=== PATIENT | male | born 1985 | race Two or more races ===

== ENCOUNTER 2020-10-20 09:10 | Emergency (ER) | payer SELFPAY ==
[~2020-10-20] VITALS: Ht 165.1 cm; Wt 178.0 kg
[2020-10-20 09:59] LABS: BASO # 0.1 x10^3/uL (0.0-0.2); BASO % 0 % (0-3); EOS # 0.1 x10^3/uL (0.0-0.7); EOS % 0 % (0-3); HEMATOCRIT 45.3 % (39.0-53.0); HEMOGLOBIN 15.6 g/dL (13.0-17.5); LYMPH # 1.4 x10^3/uL (1.0-4.8); LYMPH % 9 % (24-48); MEAN CORPUSCULAR HEMOGLOBIN 31 pg (25-35); MEAN CORPUSCULAR HGB CONC 34 g/dL (31-37); MEAN CORPUSCULAR VOLUME 91 fL (79-100); MONO % 12 % (0-9); NEUT # 12.9 x10^3/uL (1.8-7.7); NEUT % 79 % (31-73); PLATELET COUNT 313 x10^3/uL (140-400); RED BLOOD COUNT 5.01 x10^6/uL (4.30-5.70); RED CELL DISTRIBUTION WIDTH 14.6 % (11.5-14.5); WHITE BLOOD COUNT 16.5 x10^3/uL (4.0-11.0)
[2020-10-20] MEDS ORDERED: IV NORMAL SALINE 1000ML BAG 1,000 ML IV ONE (10:00)
[2020-10-20 10:08] LABS: CALCIUM 9.9 mg/dL (8.5-10.1); POTASSIUM 3.5 mmol/L (3.5-5.1)
--- NOTE | 2020-10-20 10:11 | PHYS DOC ---
Past Medical History Past Medical History: No Pertinent History Past Surgical History: No Surgical History Smoking Status: Never Smoker Alcohol Use: Occasionally General Adult EDM: Chief Complaint: SORE THROAT HPI: HPI: Patient is a 35 year old male who presented to ER for evaluation of sore throat, fever and chill, body ache since 5 days ago. Patient is complaining of pain whenever he swallows. Patient denies any headache, no neck stiffness. Patient denies being exposed to anybody who tested positive for COVID-19. Patient denies abdominal pain, no nausea vomiting. Patient denies any trouble breathing. Patient said he can open and close his mouth without any problem. Review of Systems: Review of Systems: Constitutional: Positive for fever or chills. [] Eyes: Denies change in visual acuity. [] HENT: Positive for nasal congestion or sore throat. [] Respiratory: Denies cough or shortness of breath. [] Cardiovascular: Denies chest pain or edema. [] GI: Denies abdominal pain, nausea, vomiting, bloody stools or diarrhea. [] : Denies dysuria. [] Musculoskeletal: Denies back pain or joint pain. [] Integument: Denies rash. [] Neurologic: Denies headache, focal weakness or sensory changes. [] Endocrine: Denies polyuria or polydipsia. [] Lymphatic: Denies swollen glands. [] Psychiatric: Denies depression or anxiety. [] Heart Score: Risk Factors: Risk Factors: DM, Current or recent (<one month) smoker, HTN, HLP, family history of CAD, obesity. Risk Scores: Score 0 - 3: 2.5% MACE over next 6 weeks - Discharge Home Score 4 - 6: 20.3% MACE over next 6 weeks - Admit for Clinical Observation Score 7 - 10: 72.7% MACE over next 6 weeks - Early Invasive Strategies Current Medications: Current Medications Medications (Trade) Dose Ordered Sig/Tamar Start Time Stop Time Status Last Admin Dose Admin Acetaminophen (Tylenol) 1,000 mg 1X ONCE 10/20/20 10:15 10/20/20 10:16 Ampicillin Sodium/ Sulbactam Sodium 3 gm/Sodium Chloride 100 ml @ 200 mls/hr 1X ONCE 10/20/20 10:15 10/20/20 10:44 Methylprednisolone Sodium Succinate (SOLU-Medrol 125MG VIAL) 125 mg 1X ONCE 10/20/20 10:15 10/20/20 10:16 Sodium Chloride 1,000 ml @ 1,000 mls/hr 1X ONCE 10/20/20 10:00 10/20/20 10:59 Allergies: Allergies: Allergies Coded Allergies Type Severity Reaction Last Updated Verified naproxen Allergy Intermediate SWELLING 10/20/20 Yes Physical Exam: PE: Constitutional: Well developed, well nourished, no acute distress, non-toxic appearance. [] HENT: Normocephalic, atraumatic, bilateral external ears normal, oropharynx moist with erythema and tonsillary hypertrophy, no oral exudates, nose normal. Bilateral anterior cervical lymph nodes swollen and tender. Uvula is midline. No trismus. Eyes: PERRLA, EOMI, conjunctiva normal, no discharge. [] Neck: Normal range of motion, no tenderness, supple, no stridor. [] Cardiovascular:Heart rate regular rhythm, no murmur [] Lungs & Thorax: Bilateral breath sounds clear to auscultation [] Abdomen: Bowel sounds normal, soft, no tenderness, no masses, no pulsatile masses. [] Skin: Warm, dry, no erythema, no rash. [] Back: No tenderness, no CVA tenderness. [] Extremities: No tenderness, no cyanosis, no clubbing, ROM intact, no edema. [] Neurologic: Alert and oriented X 3, normal motor function, normal sensory function, no focal deficits noted. [] Psychologic: Affect normal, judgement normal, mood normal. [] Current Patient Data: Labs: Laboratory Tests Test 10/20/20 09:45 White Blood Count 16.5 x10^3/uL (4.0-11.0) H Red Blood Count 5.01 x10^6/uL (4.30-5.70) Hemoglobin 15.6 g/dL (13.0-17.5) Hematocrit 45.3 % (39.0-53.0) Mean Corpuscular Volume 91 fL (79-100) Mean Corpuscular Hemoglobin 31 pg (25-35) Mean Corpuscular Hemoglobin Concent 34 g/dL (31-37) Red Cell Distribution Width 14.6 % (11.5-14.5) H Platelet Count 313 x10^3/uL (140-400) Neutrophils (%) (Auto) 79 % (31-73) H Lymphocytes (%) (Auto) 9 % (24-48) L Monocytes (%) (Auto) 12 % (0-9) H Eosinophils (%) (Auto) 0 % (0-3) Basophils (%) (Auto) 0 % (0-3) Neutrophils # (Auto) 12.9 x10^3/uL (1.8-7.7) H Lymphocytes # (Auto) 1.4 x10^3/uL (1.0-4.8) Monocytes # (Auto) 2.0 x10^3/uL (0.0-1.1) H Eosinophils # (Auto) 0.1 x10^3/uL (0.0-0.7) Basophils # (Auto) 0.1 x10^3/uL (0.0-0.2) Platelet Estimate Pending Laboratory Tests 10/20/20 09:45 Vital Signs: Vital Signs Date Time Temp Pulse Resp B/P (MAP) Pulse Ox O2 Delivery O2 Flow Rate FiO2 10/20/20 09:30 100.2 98 18 152/94 (113) 98 Room Air 100.2 EKG: EKG: [] Radiology/Procedures: Radiology/Procedures: [][facility] [address] [place], [place] [id number] IMAGING REPORT Signed PATIENT: ROBERT STILES LACCOUNT: [id number] : 1985 LOCATION: ER AGE: 35 SEX: M EXAM STATUS: REG ER ORD. PHYSICIAN: TYLER TERAN DO REASON: sorethroat, neck swelling PROCEDURE: CT SOFT TISSUE NECK W/CONTRAST Examination: CT soft tissue neck with IV contrast HISTORY: History of sore throat, swelling COMPARISON: 03/23/2010 TECHNIQUE: Axial CT images of the soft tissue neck were performed with IV contrast. Coronal and sagittal deformities are performed Exposure: One or more of the following individualized dose reduction techniques were utilized for this examination: 1. Automated exposure control 2. Adjustment of the mA and/or kV according to patient size 3. Use of iterative reconstruction technique FINDINGS: The visualized intracranial findings grossly appears unremarkable. The bilateral parotid glands, masticators spaces, grossly appears unremarkable. The visualized vallecula, piriform sinuses grossly appears unremarkable. Visualized identified grossly appears unremarkable. Enlarged appearing bilateral palatine tonsils with tiny amount of fluid density measuring 7 mm in the right and left tonsils could be secondary tonsillitis with small amount of fluid within or tiny abscess. Multiple enlarged bilateral cervical level II, level III lymph nodes identified with the largest measuring 1.8 cm in the right and 2.5 cm on the left. Faint airspace opacity identified in the left lower lobe of the lung likely atelectasis or infiltrate. IMPRESSION: 1. Mild enlarged bilateral tonsils probably tonsillitis with small 7 mm fluid within the right and left tonsils could be fluid collection or abscess. 2. Enlarged bilateral cervical lymph nodes probably reactive lymphadenopathy. Electronically signed by: Mike Marroquin MD (10/20/2020 10:46 AM) [id number] DICTATED and SIGNED BY: MIKE MARROQUIN MD DATE: 10/20/20 [id number] 0 Course & Med Decision Making: Course & Med Decision Making Pertinent Labs and Imaging studies reviewed. (See chart for details) Patient is a 35-year-old male who was found to have bilateral tonsillitis with bilateral small tonsillar abscess about 7 mm , discussed with ENT specialist at [facility], Dr. HAMILTON MARTIN, who recommended 2 weeks of High dose aug mentin with low dose prednisone, follow up with ENT next week. Dragon Disclaimer: Dragon Disclaimer: This electronic medical record was generated, in whole or in part, using a voice recognition dictation system. Departure Departure Impression: Primary Impression: Acute tonsillitis Additional Impressions: Tonsillar abscess Person under investigation for COVID-19 Disposition: 01 DC HOME SELF CARE/HOMELESS Condition: IMPROVED Referrals: NO PCP (PCP) JUDITH TAVARES MD PLEASE FOLLOW UP WITH THIS ENT SPECIALIST ON FRIDAY FOR REEVALUATION. Additional Instructions: Thank you for visiting our Emergency Department. We appreciate you trusting us with your care. If any additional problems come up don't hesitate to return to visit us. Please follow up with your primary care provider so they can plan additional care if needed and know about the problem that you had. If symptoms worsen come back to the Emergency Department. Any concerning symptoms that start such as chest pain, shortness of air, weakness or numbness on one side of the body, running high fevers or any other concerning symptoms return to the ER. Please follow up with the ENT specialist at [facility] IN 2 DAYS. [address] [facility], [place] [address] You have been tested for or diagnosed with COVID-19. It is an infection caused by a new type of coronavirus. COVID-19 will cause cold-like or mild flu symptoms in most. It can cause more severe symptoms like problems breathing in some. There is no treatment for COVID-19. The body will clear the infection over time. Self-care will help to ease discomfort. Steps to Take: Self-Care Rest as needed. Healthy habits may help you feel better. Steps include: Choose healthy foods including fruits and vegetables. Drink water throughout the day. Get plenty of sleep each night. If you smoke, try to quit. It may ease breathing. Avoid alcohol. Keep Others Healthy The virus can spread to others. Droplets are released every time you sneeze or cough. The droplets can get into the mouth, nose, or eyes of people near you and lead to infection. To lower the chances of spreading COVID-19 to others: Stay at home until your doctor has said it is safe to leave. If you tested positive this will mean staying isolated until both of the following are true: At least 7 days have passed since the start of illness. You are free of fever for at least 72 hours without the use of medicine. During this time: - Avoid public areas, events, or transportation. Do not return to work or school until your doctor has said it is safe to do so. - Call ahead if you need to go to a medical center. Let them know you may have COVID-19. It will help them guide you where to go. They may also ask you to wear a facemask when you come to the office. - If you call for emergency medical services, let them know you may have COVID- 19. While at home: - Try to avoid close contact with others. Stay about 6 feet away. - If possible, spend most of your time in a separate room from others. - Use a face mask if you will be in close contact with others such as sharing a room or vehicle. - Have someone wipe down common surfaces in the home. Use household drive in teller every day on areas like doorknobs, counters, or sinks. - Cough or sneeze into a tissue. Throw the tissue away right after use. If a tissue is not available, cough or sneeze into your elbow. - Wash your hands often. Wash them after sneezing or coughing. Use soap and water and wash for at least 20 seconds. Alcohol based hand silver cleaner can be used if soap and w ater is not available. - Do not prepare food for others. Avoid sharing personal items like forks, spoons, or toothbrushes. - Avoid close contact with pets while you are sick. There is no evidence of the virus passing to pets. This is a safety step until more is known about this virus. Isolation can be frustrating. Social interaction can help. Keep in touch with friends and family through phone and tech options. You can still interact with others in your home, just keep a safe distance of about 6 feet. Follow-up: Your doctors office will check in with you to see if there are any changes in your health. You may be asked to keep track of symptoms to share with them. They will also let you know when you are clear to be in public again. Problems to Look Out For: Contact your doctor if your recovery is not going as you expect. Get emergency care if you have problems such as: - Trouble breathing - Nonstop chest pain or pressure - Changes in awareness, confusion, or problems waking - Lips or face have bluish color - Worsening of symptoms If you think you have an emergency, call for emergency medical services right away. As [facility] from [facility] Prednisone (PREDNISONE) 20 Mg Tablet 1 TAB PO DAILY for 7 Days, #7 TAB Prov: TYLER TERAN DO 10/20/20 Amoxicillin/Potassium Clav (AUGMENTIN 875-125 TABLET) 1 Each Tablet 1 TAB PO BID for 14 Days, #28 TAB 0 Refills Prov: TYLER TERAN DO 10/20/20 TYLER TERAN DO Oct 20, 2020 10:11
[2020-10-20] MEDS ORDERED: AMPICILLIN/SULBACTAM 3 GM in IV NORMAL SALINE 100ML 100 ML IV ONE (10:15)
[2020-10-20] MEDS ORDERED: IOHEXOL 300 MG/ML 100ML VIAL. IV ONE (10:15)
[2020-10-20] MEDS ORDERED: methylPREDNISolone SOD SUCC PF 125 MG/2 ML VIAL. IV ONE (10:15)
[2020-10-20] MEDS ORDERED: ACETAMINOPHEN 500 MG TABLET PO ONE (10:15)
[2020-10-20] MEDS ORDERED: CONTRAST GIVEN. MC PRN (10:15)
[2020-10-20 10:21] LABS: INFLUENZA A PATIENT NEGATIVE (NEGATIVE); INFLUENZA B PATIENT NEGATIVE (NEGATIVE)
--- NOTE | 2020-10-20 10:49 | RAD ---
Examination: CT soft tissue neck with IV contrast HISTORY: History of sore throat, swelling COMPARISON: 03/23/2010 TECHNIQUE: Axial CT images of the soft tissue neck were performed with IV contrast. Coronal and sagit blaine deformities are performed Exposure: One or more of the following individualized dose reduction techniques were utilized for thi s examination: 1. Automated exposure control 2. Adjustment of the mA and/or kV according to patient size 3. Use of iterative reconstruction technique FINDINGS: The visualized intracranial findings grossly appears unremarkable. The bilateral parotid glands, masticators spaces, grossly appears unremarkable. The visualized vallecula, piriform sinuses grossly appears unremarkable. Visualized identified grossl y appears unremarkable. Enlarged appearing bilateral palatine tonsils with tiny amount of fluid density measuring 7 mm in the right and left tonsils could be secondary tonsillitis with small amount of fluid within or tiny absc ess. Multiple enlarged bilateral cervical level II, level III lymph nodes identified with the largest measuring 1.8 cm in the right and 2.5 cm on the left. Faint airspace opacity identified in the left lower lobe of the lung likely atelectasis or infiltrate. IMPRESSION: 1. Mild enlarged bilateral tonsils probably tonsillitis with small 7 mm fluid within the right and le ft tonsils could be fluid collection or abscess. 2. Enlarged bilateral cervical lymph nodes probably reactive lymphadenopathy. Electronically signed by: Mike Marroquin MD (10/20/2020 10:46 AM) [id number]
[2020-10-20 11:15] LABS: % LYMPHS 7 % (24-48); % MONOS 20 % (0-10); % SEGS 73 % (35-66); PLT ESTIMATE ADEQUATE (ADEQUATE)
[2020-10-20 11:30] VITALS: BP 135/74
[2020-10-20] MEDS ORDERED: MORPHINE SULFATE 4 MG/ML VIAL. IV ONE (12:00)
[2020-10-20] MEDS ORDERED: PRED20TA PO (12:45)
[2020-10-20] MEDS ORDERED: AMOX1TAB61 PO (12:45)
--- NOTE | 2020-10-23 11:33 | NUR ---
IP: Attempted to contact pt concerning COVID results. No answer. left a voicemail to return the call.
--- NOTE | 2020-10-23 11:48 | NUR ---
IP: Pt returned the call. Informed him of negative COVID results. Pt verbalized understanding.
== END 2020-10-20 12:59 | disposition home or self-care (01) ==
LOC: ER 09:10
DX: J03.90 Acute tonsillitis, unspecified (principal); Z20.828 Contact with and (suspected) exposure to other viral communicable diseases; R50.9 Fever, unspecified
CPT/HCPCS: 36415; 70491; 80048; 85007; 85025; 87070; 87804; 87880; 96365; 96375; 99285; J0295; J2270; J2930; J7030; Q9967; U0003; 87147; C9803